=== PATIENT | male | born 1960 | race Caucasian/White ===

== ENCOUNTER 2024-03-07 09:48 | Outpatient (AMB) | payer MEDICARE, SELFPAY ==
--- NOTE | 2024-03-07 10:18 | A.OFFVIS_ITS ---
Intake Visit Reasons: New Pt - Left Knee Pain Intake Note: Sterling 63 year old male who presents today as a new patient for an evaluation of left knee pain. Patient reports pain in the medial aspect of knee for about 4 weeks. Denies injury. States his pain is worse with weight bear and at night when he moves his leg. Finds temporary relief with ibuprofen. He has avoided any physical activity the past 2 weeks and has had no change in his pain. No numbness or tingling. Allergies No Known Allergies Allergy (Verified 03/07/24 10:20) Medication List - Last Reconciled 03/07/24 by Sridevi Russell PA-C No Known Home Meds HPI HPI New Pt - Left Knee Pain: Details: 63-year-old male who presents to the office today for evaluation of left knee pain for 4 weeks. He states he has constant pain at the medial aspect of his knee which is aggravated with weight bearing, stair use and at night when he moves his leg. He rates the pain as 7 on the scale of 0-10. He also experiences stiffness with bending and walks with a limp. He denies any numbness or tingling. He finds transient relief with ibuprofen. He has avoided physical therapy for the past 2 weeks with no change in pain. He denies any injury to his knee. He does not have a history of diabetes. [facility] Social History (Updated 03/07/24 @ 10:20 by Maty Farooq Pieter) Patient Tobacco Use Status: Never used Tobacco Current occupational status: retired Review of Systems Const All systems reviewed & are unremarkable except as noted in HPI and below Physical Exam Const General: cooperative, healthy appearing, comfortable, no acute distress, well developed and alert Orientation/consciousness: patient oriented x3 HEENT Head: Yes normal to inspection, Yes normocephalic and Yes atraumatic Eyes General: appearance normal, both eyes and all related structures Resp Effort & Inspection: normal respiratory effort and able to speak in complete sentences Cardio Rate: regular rate Peripheral pulses: Peripheral pulses 2+ throughout GI Palpation (GI): Soft to palpation Skin Lesions: no lesions Rashes: no rashes Neuro General: patient oriented x3 Extrem Other: Left knee: Skin intact, no erythema or joint effusion. Tenderness along the medial and lateral joint line. Full ROM with crepitus. Negative Harleen?s. No ligamentous laxity. NVI. Office Procedures Joint Injection/Drain Joint Injection/Drain Primary Site: left knee Prep: site was prepped using aseptic technique, ethochloride spray was applied and injection warnings given Injected: 80 mg of, DepoMedrol, with 8 mL of and 1% plain lidocaine Approach Used: anterolateral Procedure: The patient tolerated the procedure well and there was some relief with the local anesthesia Coding 31717 - Glenohumeral/Tronchanteric Bursa/Intraarticular Procedure code (CPT) selection complete Results Reviewed Results Reviewed: Xrays were obtained in the office today and personally reviewed by me of the left knee show mild oa Assessment & Plan Assessment & Plan (1) Osteoarthritis of left knee: Code(s): M17.12 - Unilateral primary osteoarthritis, left knee Category: Medical Plan We discussed options today which include steroid injection. They did consent to move forward with the left knee injection, which was tolerated well. I recommended rest, ice and elevation and OTC anti-inflammatories PRN for discomfort. If symptoms persist or worsens over the next 6-8 weeks, patient will contact the office, otherwise follow-up as needed. Orders: Orders XR knee LT 3V Today M25.562 - Pain in left knee Patient Instructions: Scribed for Sridevi Russell PA-C, by Isra Perez clinical specialist medical device, on 02/24/2024 at 10:00 AM EST. I, Sridevi Russell PA-C, have personally reviewed and agree with the information entered by the scribe. Coding Level of Care Code New Pt Level 3 (54796) Diagnoses Osteoarthritis of left knee M17.12 CPT Codes Coding - Joint 7: 56608 - Glenohumeral/Tronchanteric Bursa/Intraarticular ([id number])
== END 2024-03-07 10:55 | disposition home or self-care (01) ==
PROVIDERS: Visit Provider Physician Assistant
DX: M17.12 Unilateral primary osteoarthritis, left knee (principal)
CPT/HCPCS: 20610; 99203

== ENCOUNTER 2024-03-07 10:36 | Outpatient (REF) | payer MEDICARE, SELFPAY ==
--- NOTE | ~2024-03-07 | XR_ITS ---
EXAMINATION: XR KNEE, LEFT CLINICAL INFORMATION: Pain in left knee. COMPARISON: None available. TECHNIQUE: AP standing view of bilateral knees as well as lateral and sunrise of the left knee. FINDINGS: Left knee: Small joint effusion. Vascular calcifications. Bones are diffusely demineralized. Mild narrowing of the medial compartment with small marginal osteophytes. Mild asymmetric narrowing with tiny marginal osteophytes in the lateral compartment of the left knee: Right knee: The bones are diffusely demineralized. Mild narrowing of the medial compartment. Tiny lateral marginal osteophytes. XR/XR knee LT 3V IMPRESSION: Mild degenerative changes in the bilateral knees, left greater than right.
== END 2024-03-07 10:37 | disposition home or self-care (01) ==
LOC: HO.HOSX 10:36
PROVIDERS: Visit Provider Physician Assistant
DX: M17.12 Unilateral primary osteoarthritis, left knee (principal)
CPT/HCPCS: 20610; 73562; 99202; J1010